=== PATIENT | male | born 1965 | race Caucasian/White ===

== ENCOUNTER 2022-07-29 09:36 | Day surgery (SDC) | payer OTHER ==
[~2022-07-29] VITALS: Ht 165.1 cm; Wt 72.6 kg
[2022-07-29] MEDS ORDERED: LIDOCAINE 2% 100 MG/5 ML UJET TP ONE (09:51)
[2022-07-29] MEDS ORDERED: fentaNYL citrate 0.05 MG/ML VIAL ONE (09:51)
[2022-07-29] MEDS ORDERED: fentaNYL citrate 0.05 MG/ML VIAL IVP ONE (11:10)
== END 2022-07-29 11:20 | disposition home or self-care (01) ==
LOC: MDS 09:36 → MMU 09:37 → MDS 11:20
PROVIDERS: ATTEND Internal Medicine Gastroenterology
DX: Z12.11 Encounter for screening for malignant neoplasm of colon (principal); E78.00 Pure hypercholesterolemia, unspecified; F17.210 Nicotine dependence, cigarettes, uncomplicated; Z79.899 Other long term (current) drug therapy; Z20.822 Contact with and (suspected) exposure to COVID-19
CPT/HCPCS: 45378; 87426; J3010